=== PATIENT | male | born 1975 | race Caucasian/White ===

== ENCOUNTER 2023-07-18 16:00 | Outpatient (CLI) | payer BC, SELFPAY | END 2023-07-18 16:01 | disposition home or self-care (01) | PROVIDERS: PCP Family Medicine; Visit Provider Family Medicine | DX: E78.00 Pure hypercholesterolemia, unspecified (principal); R68.82 Decreased libido; M10.9 Gout, unspecified; Z13.228 Encounter for screening for other metabolic disorders | CPT/HCPCS: 80053; 80061; 84403; 84550; G0103 ==

== ENCOUNTER 2023-08-06 15:31 | Outpatient (CLI) | payer BC, SELFPAY | END 2023-08-06 15:32 | disposition home or self-care (01) | LOC: NFLDREF 08-22 11:00 | PROVIDERS: Visit Provider Family Medicine | DX: D64.9 Anemia, unspecified (principal); E34.9 Endocrine disorder, unspecified | CPT/HCPCS: 84270; 84402; 84403 ==

== ENCOUNTER 2023-08-09 07:02 | Outpatient (CLI) | payer BC, SELFPAY ==
--- NOTE | 2023-08-09 08:47 | W.ANESCHARGE ---
Anesthesia Charges Start Date/Time Anesthesia Start Date: 08/09/23 Anesthesia Start Time: 08:31 Stop Date/Time Anesthesia Stop Date: 08/09/23 Anesthesia Stop Time: 08:55
--- NOTE | 2023-08-09 08:57 | W.ANESCHARGE ---
Anesthesia Charges Start Date/Time Anesthesia Start Date: 08/09/23 Anesthesia Start Time: 08:31 Stop Date/Time Anesthesia Stop Date: 08/09/23 Anesthesia Stop Time: 08:55
== END 2023-08-09 07:03 | disposition home or self-care (01) ==
PROVIDERS: Visit Provider Internal Medicine
DX: Z12.11 Encounter for screening for malignant neoplasm of colon (principal)
CPT/HCPCS: 00811; 00812; 45378; J2704

== ENCOUNTER 2025-02-18 15:33 | Outpatient (CLI) | payer BC, SELFPAY | END 2025-02-18 15:34 | disposition home or self-care (01) | LOC: NFLDREF 02-23 08:30 | PROVIDERS: PCP Family Medicine; Referring Provider Family Medicine; Visit Provider Family Medicine | DX: M10.9 Gout, unspecified (principal); Z00.00 Encounter for general adult medical examination without abnormal findings | CPT/HCPCS: 80053; 80061; 84550; G0103 ==